=== PATIENT | male | born 2000 | race Caucasian/White ===

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

== ENCOUNTER 2019-06-10 00:25 | Emergency (ER) | payer OTHER, SELFPAY ==
[~2019-06-10] VITALS: Ht 185.4 cm; Wt 75.0 kg
[~2019-06-10 00:25] MED LIST: KEFL500C17 PO
[2019-06-10] MEDS ORDERED: LIDOCAINE W/EPINEPHRINE 1% 20ML VIAL SC ONE (01:30)
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
[2019-06-10 03:00] VITALS: BP 120/66
== END 2019-06-10 03:07 | disposition home or self-care (01) ==
LOC: M ED 00:25
DX: Z04.1 Encounter for examination and observation following transport accident (principal); S01.81XA Laceration without foreign body of other part of head, initial encounter; S51.011A Laceration without foreign body of right elbow, initial encounter; V43.62XA Car passenger injured in collision with other type car in traffic accident, initial encounter

== ENCOUNTER 2019-06-19 19:16 | Emergency (ER) | payer OTHER ==
[~2019-06-19] VITALS: Ht 185.4 cm; Wt 77.3 kg
[2019-06-19 22:31] VITALS: BP 128/58
--- NOTE | 2019-06-20 02:00 | REP ---
Clinical: Left chest wall pain . Comparison: 04/30/2013 . Technique: PA and lateral. Findings: The mediastinum and cardiac silhouette are normal. The lung song are clear and without acute consolidation, effusion, or pneumothorax. The skeletal structures are intact and normal. Impression: 1. No acute cardiopulmonary process. Electronically Signed by Andre Hale MD 06/20/2019 01:52 A
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
== END 2019-06-19 22:59 | disposition home or self-care (01) ==
LOC: M ED 19:16
DX: M25.512 Pain in left shoulder (principal); R07.81 Pleurodynia